=== PATIENT | male | born 1990 | race Caucasian/White ===

== ENCOUNTER 2017-10-02 19:23 | Emergency (ER) | payer SELFPAY ==
[~2017-10-02] VITALS: Ht 175.3 cm; Wt 65.8 kg
[2017-10-02 19:34] VITALS: BP_SYST 140
[2017-10-02] MEDS ORDERED: BACITRACIN 1 GM OINT TP ONE (20:17)
[2017-10-02] MEDS ORDERED: DIPH-TET-PERTUS Vaccine 0.5 ML VIAL (ADACEL) I.M. ONE (20:30)
[2017-10-02 20:45] VITALS: BP_SYST 125
== END 2017-10-02 20:45 | disposition home or self-care (01) ==
LOC: SED 19:23
DX: S01.112A Laceration without foreign body of left eyelid and periocular area, initial encounter (principal); W55.89XA Other contact with other mammals, initial encounter; Y93.89 Activity, other specified; Y92.832 Beach as the place of occurrence of the external cause; Y99.8 Other external cause status
CPT/HCPCS: 90715; 99283